=== PATIENT | male | born 1990 | race American Indian/Alaskan Native ===

== ENCOUNTER 2021-09-14 02:21 | Emergency (ER) | payer OTHER, BC ==
[~2021-09-14] VITALS: Ht 185.4 cm; Wt 156.0 kg
[~2021-09-14 02:21] MED LIST: ATENOLOL25 MG PO; FISH OIL 1,0001 EAC3 PO; FOLIC ACID1 MG PO; OFLOXACIN5 ML OTIC; ZOLOFT100 MG PO
[2021-09-14] MEDS ORDERED: ANTIBIOTIC28.4 GM TOP (04:39)
== END 2021-09-14 04:59 | disposition home or self-care (01) ==
LOC: ED 02:21
DX: S61.411A Laceration without foreign body of right hand, initial encounter (principal); W26.0XXA Contact with knife, initial encounter; I10 Essential (primary) hypertension
CPT/HCPCS: 12005; 73130; 90471; 90715; 99283-25

== ENCOUNTER 2022-01-13 05:46 | Emergency (ER) | payer BC, OTHER ==
[~2022-01-13] VITALS: Ht 185.4 cm; Wt 146.0 kg
[~2022-01-13 05:46] MED LIST changes: +ANTIBIOTIC28.4 GM TOP
[2022-01-13] MEDS ORDERED: ZITHROMAX250 MG PO (06:33)
== END 2022-01-13 06:38 | disposition home or self-care (01) ==
LOC: ED 05:46
DX: J02.9 Acute pharyngitis, unspecified (principal); Z88.0 Allergy status to penicillin
CPT/HCPCS: 87880; 99283

== ENCOUNTER 2022-06-21 12:10 | Emergency (ER) | payer BC, OTHER ==
[~2022-06-21] VITALS: Ht 185.4 cm; Wt 144.5 kg
[~2022-06-21 12:10] MED LIST changes: +ZITHROMAX250 MG PO
== END 2022-06-21 14:49 | disposition home or self-care (01) ==
LOC: ED 12:10
DX: S30.1XXA Contusion of abdominal wall, initial encounter (principal); Z88.0 Allergy status to penicillin; W10.9XXA Fall (on) (from) unspecified stairs and steps, initial encounter
CPT/HCPCS: 71101; 81001; 99283-25; A9270

== ENCOUNTER 2023-10-08 08:18 | Emergency (ER) | payer BC, OTHER ==
[~2023-10-08] VITALS: Ht 185.4 cm; Wt 142.5 kg
[2023-10-08 09:01] LABS: HEMATOCRIT 40.5 % (35.0-50.0); HEMOGLOBIN 13.5 g/dL (12.0-18.0); MCH 30.2 (27-36); MCHC 33.3 g/dl (30-36); MCV 90.7 fl (81-99); PLATELET COUNT 150 K/uL (140-440); RBC 4.46 M/ul (4.3-5.7); RDW 17.7 (10.5-15.0)
[2023-10-08 09:19] LABS: ALBUMIN 1.6 g/dL (3.4-5.0); ALBUMIN/GLOBULIN RATIO 0.29 (1.1-2.4); BUN/CREATININE RATIO 12.5 (6.0-28.6); CALCIUM 7.2 mg/dL (8.5-10.1); CREATININE, SERUM 0.64 mg/dL (0.70-1.30); PROTEIN, TOTAL 7.1 g/dL (6.4-8.2)
[2023-10-08 09:34] LABS: LYMPHOCYTES, MANUAL DIFF 8; MONOCYTES, MANUAL DIFF 6; NEUTROPHILS, MANUAL DIFF 80
[2023-10-08 09:43] LABS: INR 2.22 (0.80-1.30); PROTIME 23.7 Sec (11.2-14.2)
[2023-10-08 09:55] LABS: LACTIC ACID, BLOOD 1.5 mmol/L (0.4-2.0)
[2023-10-08 10:20] LABS: INFLUENZA B NAA NEGATIVE (NEGATIVE); RESPIRATORY SYNCYTIAL VIR NAA NEGATIVE (NEGATIVE)
--- NOTE | 2023-10-08 19:26 | EKG ---
[facility] [address] [facility] [place], [place] [address] Signed Normal sinus rhythm Prolonged QT Abnormal ECG No previous ECGs available Confirmed by ИРИНА MURILLO MD ([id number]) on 10/08/2023 7:26:18 PM Electronically Signed By: ИРИНА MURILLO 10/08/23 192 PATIENT NAME: SILVIA DILL Electrocardiogram DATE OF : 88 PHYSICIAN: ИРИНА MURILLO REPORT #: [id number] REPORT IS CONFIDENTIAL AND NOT TO BE RELEASED WITHOUT AUTHORIZATION
[2023-10-08 19:53] LABS: HEMATOCRIT 38.2 % (35.0-50.0); MCHC 33.1 g/dl (30-36); PLATELET COUNT 173 K/uL (140-440)
[2023-10-08 19:55] LABS: HEMOGLOBIN 12.7 g/dL (12.0-18.0); MCH 30.2 (27-36); MCV 91.3 fl (81-99); RBC 4.19 M/ul (4.3-5.7)
[2023-10-08 20:11] LABS: INR 2.39 (0.80-1.30); PROTIME 25.1 Sec (11.2-14.2)
[2023-10-08 20:13] LABS: BANDS, MANUAL DIFF 3; EOSINOPHILS, MANUAL DIFF 1; LYMPHOCYTES, MANUAL DIFF 9; MONOCYTES, MANUAL DIFF 9; NEUTROPHILS, MANUAL DIFF 78
[2023-10-09 08:59] LABS: RDW 17.5 (10.5-15.0)
[2023-10-09 09:02] LABS: HEMATOCRIT 37.9 % (35.0-50.0); HEMOGLOBIN 13.1 g/dL (12.0-18.0); INR 2.33 (0.80-1.30); MCH 30.9 (27-36); MCHC 34.4 g/dl (30-36); MCV 89.9 fl (81-99); PLATELET COUNT 158 K/uL (140-440); PROTIME 24.6 Sec (11.2-14.2); RBC 4.22 M/ul (4.3-5.7)
[2023-10-09 09:05] LABS: ALBUMIN 1.3 g/dL (3.4-5.0); ALBUMIN/GLOBULIN RATIO 0.24 (1.1-2.4); ANION GAP 10.7 (7-21); BILIRUBIN, TOTAL 16.6 ng/dL (0.2-1.0); BUN/CREATININE RATIO 14.28 (6.0-28.6); CREATININE, SERUM 0.7 mg/dL (0.70-1.30); POTASSIUM 3.7 mmol/L (3.5-5.1); PROTEIN, TOTAL 6.8 g/dL (6.4-8.2)
[2023-10-09 09:31] LABS: BANDS, MANUAL DIFF 4; LYMPHOCYTES, MANUAL DIFF 11; MONOCYTES, MANUAL DIFF 13; NEUTROPHILS, MANUAL DIFF 72
[2023-10-09 09:40] LABS: BASOPHILS, MANUAL DIFF 0; EOSINOPHILS, MANUAL DIFF 0
[2023-10-09 21:57] LABS: ABO A; RH POSITIVE
[2023-10-09 21:58] LABS: ANTIBODY SCREEN NEGATIVE
[2023-10-10 06:22] LABS: ABO A; RH POSITIVE
[2023-10-10 07:50] LABS: HEMOGLOBIN 12.5 g/dL (12.0-18.0); MCH 30.6 (27-36); MCHC 33.9 g/dl (30-36)
[2023-10-10 07:51] LABS: HEMATOCRIT 36.8 % (35.0-50.0); MCV 90.3 fl (81-99); PLATELET COUNT 191 K/uL (140-440); RBC 4.08 M/ul (4.3-5.7); RDW 17.9 (10.5-15.0)
[2023-10-10 08:03] LABS: INR 1.93 (0.80-1.30); PROTIME 21.4 Sec (11.2-14.2)
[2023-10-10 08:05] LABS: ALBUMIN 1.6 g/dL (3.4-5.0); ALBUMIN/GLOBULIN RATIO 0.28 (1.1-2.4); ANION GAP 10.3 (7-21); BILIRUBIN, TOTAL 20.7 ng/dL (0.2-1.0); BUN/CREATININE RATIO 14.52 (6.0-28.6); CALCIUM 7.2 mg/dL (8.5-10.1); CREATININE, SERUM 1.17 mg/dL (0.70-1.30); POTASSIUM 3.3 mmol/L (3.5-5.1); PROTEIN, TOTAL 7.3 g/dL (6.4-8.2)
[2023-10-10 08:19] LABS: LYMPHOCYTES, MANUAL DIFF 6; MONOCYTES, MANUAL DIFF 12; NEUTROPHILS, MANUAL DIFF 82
[2023-10-10 09:02] LABS: VANCOMYCIN, TROUGH 17.6 ug/mL (5.0-20.0)
[2023-10-10 12:08] LABS: SOURCE, BODY FLUID PLEURAL
[2023-10-10 12:10] LABS: MONONUCLEAR CELLS, BODY FLUID 14; PMNS, BODY FLUID 86
[2023-10-11 08:28] VITALS: BP 130/49
[2023-10-11 11:51] LABS: AMYLASE, BODY FLUID 108 U/L (()); GLUCOSE,BODY FLUID 51 mg/dL (()); LACTATE DEHYDROGENASE TOTAL,BF 340 U/L (())
--- NOTE | 2023-10-18 10:29 | CONS ---
[facility] [address] [place], [place] [address] Signed DATE OF CONSULTATION: 10/10/2023 REQUESTING PHYSICIAN: Dr. Hester and Dr. Scott. ISSUE: Right pleural effusion with complex right-sided pneumonia, hepatic failure, hyperbilirubinemia and corrected coagulopathy. HISTORY: This 33-year-old man is known to have long-standing alcohol abuse and has been seen in the emergency room since October 10, 2023. He was noted to have a right-sided pleural effusion with complex right-sided pneumonia and initial bilirubin greater than 16. He arrived with shortness of breath and cough for the preceding six days as well as abdominal pain which he attributed to coughing. His O2 saturation on room air was 88%. His evaluation in the emergency room has included a CT scan of the chest and abdomen. He is noted to have a multifocal consolidation in the right lung with moderate to large right pleural effusion and multifocal pneumonia as well as a thickened gallbladder wall and mild dilation as well as adjacent pericholecystic fluid. It is uncertain if he had acute cholecystitis. Nodular contour of the liver capsule was consistent with cirrhosis. His initial laboratory studies showed a bilirubin of 15 with a white cell count of 28,000. He was considered by the hospitalist to be better served at a tertiary center given his multisystem issues including likely liver failure. Notably, his lactic acid is only 1.5. Attempts by emergency room personnel for transfer to a tertiary center have been largely unsuccessful. I was called by Dr. Scott at approximately 10 o'clock last night regarding his situation, having spoken with a physician elsewhere, who recommended correction of his coagulopathy with right-sided thoracentesis to determine a transudative versus exudative effusion for which a decision could be more accurately made. At that point, his bilirubin was over 18. An attempted reversal of his coagulopathy with vitamin K was (predictably) unsuccessful. The patient has undergone 4 unit transfusion of fresh frozen plasma this morning and his INR is now 1.5. In the window of reversal of his coagulopathy, thoracentesis is requested at this time. The patient himself feels only minimal dyspnea mostly with exertion. He is accompanied by his father who is supportive of him. PHYSICAL EXAMINATION: GENERAL: This is a very obese man, who does not look to be in much distress at all surprisingly. Electronically Signed By: DOUGLAS SHEN MD 10/18/23 1029 PATIENT NAME: SILVIA DILL JR CONSULTATION DATE OF : 88 REPORT #: [id number] PHYSICIAN: DOUGLAS SHEN MD PCP: [facility] REPORT IS CONFIDENTIAL AND NOT TO BE RELEASED WITHOUT AUTHORIZATION [facility] [address] [place], [place] [address] Signed NECK: Trachea is midline. He has no hoarseness. There is no jugular venous distention. CHEST: Shows no evidence of tachypnea at this time. An X is noted on the right posterolateral thorax related to an ultrasound performed today by the radiologist indicating an area of likely fluid collection. ABDOMEN: Quite obese. EXTREMITIES: Show no petechiae, but are large as well. ASSESSMENT: Thoracentesis can be undertaken as his coagulopathy is now reasonably well reversed and this may guide further management decisions including transfer, etc. The risk of bleeding, infection, pneumothorax, and other unforeseen complications related to the thoracentesis were reviewed with the patient in the presence of his father. He understood and wished to proceed. MD MARIAMA López/YAMIL /[id number] cc: MD Kevin Flores MD Copies: MANA SCOTT MD, WILLIAM S MD ~ Electronically Signed By: DOUGLAS SHEN MD 10/18/23 1029 PATIENT NAME: SILVIA DILL CONSULTATION DATE OF : 88 REPORT #: [id number] PHYSICIAN: DOUGLAS SHEN MD PCP: [facility] REPORT IS CONFIDENTIAL AND NOT TO BE RELEASED WITHOUT AUTHORIZATION
--- NOTE | 2023-10-18 10:29 | OR ---
[facility] [address] [place], [place] [address] Signed DATE OF OPERATION: 10/10/2023 SURGEON: Douglas Shen MD PREOPERATIVE DIAGNOSES: 1. Hepatic failure with hyperbilirubinemia and coagulopathy (corrected with FFP). 2. Right-sided complex pneumonia with pleural effusion. POSTOPERATIVE DIAGNOSES: 1. Hepatic failure with hyperbilirubinemia and coagulopathy (corrected with FFP). 2. Right-sided complex pneumonia with pleural effusion. PROCEDURE: Right thoracentesis (800 mL, dark hill fluid). ANESTHESIA: Local 6 mL of 1% lidocaine with epinephrine. INDICATIONS FOR THE PROCEDURE: This morbidly obese 33-year-old [place] man, who has been in the emergency room for the past 2-1/2 days, presenting with shortness of breath and a CT scan finding showing complex right-sided pneumonia and a pleural effusion. He was noted to have a bilirubin greater than 18. Liver enzymes relatively normal and concurrent findings of mildly thickened gallbladder without stones. Attempts at transfer elsewhere have been unsuccessful and recommendation has been made for thoracentesis to better guide management decisions, specifically whether a transudative or exudative effusion is present. I have reviewed with the patient and his father the risk of thoracentesis, which include but are not limited to bleeding, infection, pneumothorax and so on. He understands and wished to proceed. FINDINGS: Rather dark (bilious) fluid was noted. It was relatively clear and not obviously hemorrhagic. Approximately 800 mL of fluid was withdrawn. The initial fluid was clear, light yellow. The fluid retrieved in aggregate was more deeply colored and hill. He tolerated the procedure well. There were no known complications. Chest x-ray is pending. DESCRIPTION OF PROCEDURE: The patient is sitting upright with arms draped over a pillow laid in Waters stand. The right posterior thorax was prepared. A sherwin was made at the tip of the scapula with his Electronically Signed By: DOUGLAS SHEN MD 10/18/23 1029 PATIENT NAME: SILVIA DILL OPERATIVE REPORT DATE OF : 88 REPORT #: [id number] PHYSICIAN: DOUGLAS SHEN MD PCP: [facility] REPORT IS CONFIDENTIAL AND NOT TO BE RELEASED WITHOUT AUTHORIZATION [facility] [address] [place], [place] [address] Signed arms extended over the Waters stand. An X was present from ultrasonographic marking from radiologist earlier in the day. The area was prepared with chlorhexidine solution and draped sterilely. A 1% lidocaine with epinephrine injected over what likely was the 6th or 7th rib. Given his thick soft tissue of the chest, clear identification of a rib proper was not forthcoming at that point. A small incision was made with the tip of an 11 blade and the thoracentesis catheter was passed through it to the depth of the chest wall. A rib was identified and catheter entered the pleural space over the rib. Aspiration during the course of this delivered clear yellow fluid. The catheter was advanced, and the needle were removed. Using a three-way stopcock with appropriate tubing, aspiration of pleural fluid was undertaken, which showed initially clear yellow fluid, but ultimately a more hill type fluid. Using a three-way stopcock, a Vacutainer bottle was used, and ultimately approximately 800 mL of fluid was withdrawn. The catheter was somewhat temperamental towards the end and whether or not complete withdrawal of all the fluid has been accomplished, it was uncertain and probably unlikely. When no further fluid could be more fully withdrawn, the catheter was removed and a Band-Aid applied over the puncture site. The patient tolerated procedure well and chest x-ray is pending. MD MARIAMA López/BRAVOL /[id number] cc: MD Kevin Flores MD Copies: MANA SCOTT MD,KEVIN Garza MD ~ Electronically Signed By: DOUGLAS SHEN MD 10/18/23 1029 PATIENT NAME: ANIYAHSILVIA PAMELA OPERATIVE REPORT DATE OF : 88 REPORT #: [id number] PHYSICIAN: DOUGLAS SHEN MD PCP: [facility] REPORT IS CONFIDENTIAL AND NOT TO BE RELEASED WITHOUT AUTHORIZATION
== END 2023-10-11 08:28 | disposition short-term general hospital (02) ==
LOC: ED 08:18
PROVIDERS: Emergency Medicine
DX: J18.9 Pneumonia, unspecified organism (principal); K72.90 Hepatic failure, unspecified without coma; J90 Pleural effusion, not elsewhere classified; Z88.0 Allergy status to penicillin; Z11.52 Encounter for screening for COVID-19
CPT/HCPCS: 36415; 36430; 71045; 71260; 74177; 76604; 76705; 80053; 80202; 82150; 82945; 83605; 83880; 83986; 84484; 85025; 85610; 85730; 86850; 86900; 86901; 87040; 87070; 87075; 87205; 87502; 89051; 93005; 93010; 96366; 96367; 99285-25; A9270; C9803; J0696; J1170; J3370; J7060; P9059; Q9967; U0002